=== PATIENT | male | born 1960 | race Caucasian/White ===

== ENCOUNTER 2022-11-17 21:58 | Inpatient (IN) | payer MEDICARE ==
[~2022-11-17] VITALS: Ht 188 cm; Wt 114.3 kg
[2022-11-17] MEDS ORDERED: MINE133E RC (22:18)
[2022-11-17] MEDS ORDERED: MULT-225 PO (22:18)
[2022-11-17] MEDS ORDERED: PANT40TA2 PO (22:18)
[2022-11-17] MEDS ORDERED: METF-440 PO (22:18)
[2022-11-17] MEDS ORDERED: AMLO5TAB4 PO (22:18)
[2022-11-17] MEDS ORDERED: BISA10SU61 RC (22:18)
[2022-11-17] MEDS ORDERED: DIVA500T2 PO (22:18)
[2022-11-17] MEDS ORDERED: TAMS-3 PO (22:18)
[2022-11-17] MEDS ORDERED: ACET325T53 PO (22:18)
[2022-11-17] MEDS ORDERED: MAGN400O6 PO (22:18)
[2022-11-17] MEDS ORDERED: QUET50TA PO (22:18)
[2022-11-17] MEDS ORDERED: QUET25TA PO (22:18)
[2022-11-17] MEDS ORDERED: PARO-154 PO (22:18)
[2022-11-17] MEDS ORDERED: CLON0.5T PO (22:18)
[2022-11-17] MEDS ORDERED: ASPI81TA31 PO (22:18)
[2022-11-17] MEDS ORDERED: LISI10TA29 PO (22:18)
[2022-11-17] MEDS ORDERED: LITH300T3 PO (22:18)
[2022-11-17 22:57] LABS: HEMATOCRIT 32.8 % (36.7-47.1); MEAN CORPUSCULAR HEMOGLOBIN 31.4 uug (23.8-33.4); MEAN CORPUSCULAR VOLUME 94.3 fL (73.0-96.2); PLATELET COUNT (AUTO) 234 K/uL (152-348)
[2022-11-17 23:09] LABS: CARBON DIOXIDE 26 mmol/L (21-32); CHLORIDE 102 mmol/L (98-107); GLUCOSE 144 mg/dL (74-106); POTASSIUM 4.1 mmol/L (3.5-5.1); UREA NITROGEN, BLOOD 25 mg/dL (7-18)
[2022-11-17 23:15] LABS: ALANINE AMINOTRANSFERASE 18 U/L (16-63); ALKALINE PHOSPHATASE 67 U/L (50-136); ASPARTATE AMINOTRANSFERASE 7 U/L (15-37); BILIRUBIN,DIRECT < 0.1 mg/dL (0.0-0.2); BILIRUBIN,TOTAL 0.2 mg/dL (0.2-1.0); TOTAL PROTEIN, SERUM 6.6 g/dL (6.4-8.2)
[2022-11-17 23:16] LABS: ETHANOL < 3 MG/DL (0-0)
--- NOTE | 2022-11-17 23:19 | NUR ---
Called Will hot car operator for psych consult.
[2022-11-17 23:23] LABS: *BILIRUBIN,URIN NEGATIVE (NEGATIVE); *BLOOD, URINE NEGATIVE (NEGATIVE); *CLARITY,URINE CLEAR (CLEAR); *COLOR,URINE YELLOW (YELLOW); *KETONES,URINE NEGATIVE (NEGATIVE); *UROBILINOGEN,URINE 0.2 E.U./dl (NORMAL); LEUKOCYTE ESTERASE ,URINE NEGATIVE (NEGATIVE); NITRITE, URINE NEGATIVE (NEGATIVE); UGLUCOSE NEGATIVE (NEGATIVE)
[2022-11-17 23:26] LABS: ACETAMINOPHEN < 2.0 ug/mL (10-30)
[2022-11-17] MEDS ORDERED: BISACODYL 10 MG SUPP.RECT RC PRN (23:45)
[2022-11-17] MEDS ORDERED: MAGNESIUM HYDROXIDE 30 ML LIQUID UDC PO PRN (23:45)
[2022-11-17] MEDS ORDERED: MINERAL OIL FLEET ENEMA 133 ML BOTTLE RC PRN (23:45)
[2022-11-17] MEDS ORDERED: ACETAMINOPHEN 325 MG TABLET-SA PATIENTS-PAIN ONLY PO PRN (23:45)
[2022-11-17 23:56] LABS: *AMPHETAMINE, URINE NEGATIVE (NEGATIVE); *CANNABINOID, URINE NEGATIVE (NEGATIVE); *COCCAINE, URINE NEGATIVE (NEGATIVE); *PHENCYCLIDINE SCREEN,URINE NEGATIVE (NEGATIVE)
--- NOTE | 2022-11-18 00:20 | NUR ---
Patient placed on hold by parts assembler Will.
--- NOTE | 2022-11-18 00:32 | NUR ---
Called pt. brother Jake Alegria to alert of pt admission. Left a voicemail.
--- NOTE | 2022-11-18 01:08 | NUR ---
Called [facility] and gave report to Nano MILLARD.
[2022-11-18] MEDS ORDERED: MAGNESIUM HYDROXIDE 30 ML LIQUID UDC PO PRN (02:00)
[2022-11-18] MEDS ORDERED: MAG HYDROX/AL HYDROX/SIMETH 30 ML LIQUID UDC PO PRN (02:00)
--- NOTE | 2022-11-18 02:00 | NUR ---
Transferred patient to MHU via wheelchair. VENICE Mcgill made aware of patient's arrival.
--- NOTE | 2022-11-18 02:45 | NUR ---
Admission Note: A 62 Yr Old patient was brought to the ER from [facility] to be Psychiatrically evaluated. Pt was placed on a 5150 hold for GD. Per hold,Pt Is confused, Disoriented, Nonsensical, aggressive toward staff and unable to care for self. Pt has a history of Dementia, Mood Disturbances and Anxiety, Schizophrenia and Bipolar Disorder. Upon face to face evaluation, Pt was confused, disorganized, disoriented, nonsensical and a poor historian. Pt is A/O X2 to name and situation. Pt was mumbling to him self with an occasional inappropriate comment.Head to toe assessment done and pt was oriented to the unit. A patients rights hand book and advisement provided. Reassurance provided, Safety measures put in place. No acute distress noted. Continue to monitor for safety, continue with treatment plan.
[2022-11-18] MEDS: LORAZEPAM 1 MG TABLET PO PRN ×2 (02:55→21:21)
[2022-11-18] MEDS: ACETAMINOPHEN 325 MG TABLET PO PRN ×3 (02:55→21:21)
[2022-11-18 02:57] VITALS: BP 105/52
[2022-11-18] MEDS: PANTOPRAZOLE SODIUM 40 MG TABLET.DR PO SCH (07:04)
[2022-11-18 07:41] VITALS: BP 128/64
[2022-11-18] MEDS: LISINOPRIL 10 MG TABLET PO SCH (08:42)
[2022-11-18] MEDS: METFORMIN HCL 500 MG TABLET PO SCH ×2 (08:42→17:02)
[2022-11-18] MEDS: ASPIRIN 81 MG TAB.CHEW PO SCH (08:43)
[2022-11-18] MEDS: AMLODIPINE 5 MG TABLET PO SCH (08:43)
[2022-11-18] MEDS: MULTIVITAMINS,THERAPEUTIC TABLET PO SCH (08:43)
[2022-11-18] MEDS: DIVALPROEX 500 MG TABLET.DR PO SCH ×2 (10:21→21:21)
[2022-11-18] MEDS: LITHIUM CARBONATE 300 MG CAPSULE PO SCH ×2 (10:21→16:23)
--- NOTE | 2022-11-18 11:00 | NUR ---
Gps/Choir Director- Nemariannay, confused , kept coming into the Nurses station , asking for his simple needs . Constantly needing to be redirected. Confused , disoriented .safety reviewed
[2022-11-18] MEDS: OLANZAPINE 2.5 MG TABLET PO SCH ×2 (14:11→16:23)
[2022-11-18 16:15] VITALS: BP 111/66
--- NOTE | 2022-11-18 16:47 | NUR ---
Gps/Hull Sorter- Patient requesting to sit on a marilyn-chair informed he does not need one , he is ambulatory , claimed his feet hurts, offered tylenol 650 mg po , instructed to elevate feet when in bed.Meds. compliant
[2022-11-18 19:44] VITALS: BP 119/59
[2022-11-18] MEDS: TAMSULOSIN HCL 0.4 MG CAP.SR.24H PO SCH (21:21)
[2022-11-18] MEDS: ZOLPIDEM 5 MG TABLET PO PRN (23:16)
--- NOTE | 2022-11-19 05:23 | NUR ---
Pt is AOx1, responds to name. Disoriented, confused, very forgetful, poor judgement, poor impulse control, intrusive, restless. Patient is compliant with medications, took 2100 hour meds, along with prn meds, but patient continues to be confused, disoriented, and hard to re-direct. Self ambulatory, yet needs assistance with ADL's. Continuously asks the same questions to staff. Also asks for irrelevant needs throughout shift. Repeated education, reassuring, and monitoring is needed for client compliancy and pt safety.
[2022-11-19] MEDS: LORAZEPAM 1 MG TABLET PO PRN ×4 (05:51→20:20)
[2022-11-19] MEDS: PANTOPRAZOLE SODIUM 40 MG TABLET.DR PO SCH (07:00)
[2022-11-19 07:45] VITALS: BP 150/69
[2022-11-19] MEDS: DIVALPROEX 500 MG TABLET.DR PO SCH ×2 (08:19→20:20)
[2022-11-19] MEDS: ASPIRIN 81 MG TAB.CHEW PO SCH (08:19)
[2022-11-19] MEDS: MULTIVITAMINS,THERAPEUTIC TABLET PO SCH (08:19)
[2022-11-19] MEDS: OLANZAPINE 2.5 MG TABLET PO SCH ×3 (08:19→16:38)
[2022-11-19] MEDS: METFORMIN HCL 500 MG TABLET PO SCH ×2 (08:19→18:04)
[2022-11-19] MEDS: LITHIUM CARBONATE 300 MG CAPSULE PO SCH ×2 (08:19→16:38)
[2022-11-19] MEDS: AMLODIPINE 5 MG TABLET PO SCH (08:21)
[2022-11-19] MEDS: LISINOPRIL 10 MG TABLET PO SCH (08:21)
[2022-11-19] MEDS: PAROXETINE HCL 10 MG TABLET PO SCH (08:23)
[2022-11-19 08:55] LABS: THYROID STIMULATING HORMONE 1.682 mIU/mL (0.358-3.740)
--- NOTE | 2022-11-19 13:34 | NUR ---
GPS: Nursing Notes: Destructive Behavior To Others: Patient is awake and responding to his name, impaired judgment, poor insight, episodes of walking half naked on the hallway, redirected and reoriented during shift, repetitive when answering questions, disorganized, poor impulse control, unable to formulate a viable plan for self care, believes that a taxi is coming to pick him up, continue to monitor for safety, continue with treatment plan.
[2022-11-19 15:22] VITALS: BP 101/57
[2022-11-19] MEDS: ACETAMINOPHEN 325 MG TABLET PO PRN (16:40)
[2022-11-19 19:47] VITALS: BP 146/68
[2022-11-19] MEDS: TAMSULOSIN HCL 0.4 MG CAP.SR.24H PO SCH (20:20)
[2022-11-20] MEDS: ZOLPIDEM 5 MG TABLET PO PRN (00:53)
[2022-11-20] MEDS: LORAZEPAM 1 MG TABLET PO PRN ×3 (04:22→20:43)
[2022-11-20] MEDS: ACETAMINOPHEN 325 MG TABLET PO PRN ×3 (04:22→16:59)
--- NOTE | 2022-11-20 06:06 | NUR ---
GPS: Pt.slept 4.30 last night. Remains confused,disoriented and disorganized. Easily irritable and argumentative when being re-directed. Poor insight and judgment. Frequently asks if he can go home. Re-assured prn. Med.compliant. Safe environment provided. Will continue to monitor.
[2022-11-20] MEDS: PANTOPRAZOLE SODIUM 40 MG TABLET.DR PO SCH (06:23)
[2022-11-20 08:09] VITALS: BP 133/50
[2022-11-20] MEDS: LITHIUM CARBONATE 300 MG CAPSULE PO SCH ×2 (08:30→16:59)
[2022-11-20] MEDS: DIVALPROEX 500 MG TABLET.DR PO SCH ×2 (08:30→20:24)
[2022-11-20] MEDS: LISINOPRIL 10 MG TABLET PO SCH (08:30)
[2022-11-20] MEDS: ASPIRIN 81 MG TAB.CHEW PO SCH (08:30)
[2022-11-20] MEDS: PAROXETINE HCL 10 MG TABLET PO SCH (08:30)
[2022-11-20] MEDS: METFORMIN HCL 500 MG TABLET PO SCH ×2 (08:30→17:01)
[2022-11-20] MEDS: OLANZAPINE 2.5 MG TABLET PO SCH ×2 (08:30→16:59)
[2022-11-20] MEDS: MULTIVITAMINS,THERAPEUTIC TABLET PO SCH (08:30)
[2022-11-20] MEDS: AMLODIPINE 5 MG TABLET PO SCH (08:31)
--- NOTE | 2022-11-20 09:13 | NUR ---
GPS: Nursing Notes: 5250 [facility] Request: Staff gave copy of 5250 to patient. Explained 5250 and informed patient that a certification review hearing will be held within four days and patient's right advocate will call him to provide assistance with the hearing and to answer his questions. The court has been notified of this certification via [facility] portal on this day.
--- NOTE | 2022-11-20 13:07 | NUR ---
GPS: Nursing Notes: Destructive Behavior To Others: Patient is awake and responding to his name, impaired judgment, overly demanding at times, needy, repetitive speech when answering questions, disorganized, poor impulse control, episodes of walking half naked on the hallway, redirected and reoriented during shift, forgetful, unable to formulate a viable plan for self care, needs prompting to participate in therapeutic groups, no aggressive behavior noted, continue to monitor for safety, continue with treatment plan.
--- NOTE | 2022-11-20 14:42 | NUR ---
PERRY Initial Discharge Note: Pt currently resides at [facility] ([phone]) located at [address] [place] [address]. PERRY spoke with pt's brother/probate conservator, Jake ([phone]) who stated pt will return to [facility]. Jake stated he is the only family contact for the pt. PERRY will continue to work with pt, Jake and to ensure a safe and proper discharge plan.
[2022-11-20 16:03] VITALS: BP 128/62
[2022-11-20 19:45] VITALS: BP 130/64
[2022-11-20] MEDS: OLANZAPINE 5 MG TABLET PO SCH (20:24)
[2022-11-20] MEDS: TAMSULOSIN HCL 0.4 MG CAP.SR.24H PO SCH (20:24)
[2022-11-21] MEDS: ZOLPIDEM 5 MG TABLET PO PRN (02:03)
[2022-11-21] MEDS: PANTOPRAZOLE SODIUM 40 MG TABLET.DR PO SCH (06:10)
[2022-11-21] MEDS: LORAZEPAM 1 MG TABLET PO PRN ×2 (06:10→18:44)
--- NOTE | 2022-11-21 06:31 | NUR ---
GPS: Pt. remains confused,forgetful and disorganized. Poor insight to present situation and has impaired judgment. Frequently at nurses station asking for things repeatedly. Intrusive and easily irritable when his demands are not granted. Takes meds. as ordered when offered. Slept 5 hrs.last night. Safe environment provided.. Will continue to re-direct and re-assure prn.
[2022-11-21 07:50] VITALS: BP 142/71
[2022-11-21] MEDS: METFORMIN HCL 500 MG TABLET PO SCH ×2 (08:12→17:25)
[2022-11-21] MEDS: ASPIRIN 81 MG TAB.CHEW PO SCH (08:12)
[2022-11-21] MEDS: OLANZAPINE 2.5 MG TABLET PO SCH ×2 (08:12→17:25)
[2022-11-21] MEDS: DIVALPROEX 500 MG TABLET.DR PO SCH ×2 (08:12→20:11)
[2022-11-21] MEDS: LITHIUM CARBONATE 300 MG CAPSULE PO SCH ×2 (08:13→17:25)
[2022-11-21] MEDS: AMLODIPINE 5 MG TABLET PO SCH (08:13)
[2022-11-21] MEDS: MULTIVITAMINS,THERAPEUTIC TABLET PO SCH (08:13)
[2022-11-21] MEDS: LISINOPRIL 10 MG TABLET PO SCH (08:13)
[2022-11-21 15:10] VITALS: BP 119/74
--- NOTE | 2022-11-21 18:31 | NUR ---
Pt is anxious, confused,labile, forgetful and restless. Repeatedly asking for food and where is his room. Pt was reassured and redirected. Pt has insight to present situation and can not care for self. Pt is compliant with medication and with nursing care. Pt is Nonsensical, argumentative constantly coming to nursing station asking to let him go. Pt Yells "let me go , let me go " "I don't care of the whole world " I want to go to [facility] " You want to kill me " Kill me Kill Me" . Pt was redirected and reassured. Continue to monitor for behavioral escalation and for safety.
[2022-11-21] MEDS: ACETAMINOPHEN 325 MG TABLET PO PRN (18:44)
[2022-11-21 19:58] VITALS: BP 132/70
[2022-11-21] MEDS: TAMSULOSIN HCL 0.4 MG CAP.SR.24H PO SCH (20:10)
[2022-11-21] MEDS: OLANZAPINE 5 MG TABLET PO SCH (20:11)
[2022-11-22] MEDS: PANTOPRAZOLE SODIUM 40 MG TABLET.DR PO SCH (06:12)
[2022-11-22 07:30] VITALS: BP 126/69
[2022-11-22] MEDS: LISINOPRIL 10 MG TABLET PO SCH (08:59)
[2022-11-22] MEDS: LITHIUM CARBONATE 300 MG CAPSULE PO SCH ×3 (08:59→17:28)
[2022-11-22] MEDS: DIVALPROEX 500 MG TABLET.DR PO SCH ×3 (08:59→17:28)
[2022-11-22] MEDS: AMLODIPINE 5 MG TABLET PO SCH (08:59)
[2022-11-22] MEDS: ASPIRIN 81 MG TAB.CHEW PO SCH (08:59)
[2022-11-22] MEDS: MULTIVITAMINS,THERAPEUTIC TABLET PO SCH (08:59)
[2022-11-22] MEDS: METFORMIN HCL 500 MG TABLET PO SCH ×2 (09:00→17:28)
[2022-11-22] MEDS: OLANZAPINE 2.5 MG TABLET PO SCH ×2 (09:00→17:28)
[2022-11-22 15:52] VITALS: BP 117/50
[2022-11-22] MEDS: PROTEIN SUPPLEMENT (PROSTAT) 30 ML LIQUID PO SCH (17:29)
--- NOTE | 2022-11-22 18:33 | NUR ---
Pt is confused and disoriented . Pt is argumentative when he does not get his way.Pt is constantly asking "can you let me out" I want to go home, I wan to go home "I want food ,I want food" " Give me food, Give me food". Reassured, redirected. Safety measures on place . Continue to monitor for safety.
[2022-11-22 20:10] VITALS: BP 120/65
[2022-11-22] MEDS: OLANZAPINE 5 MG TABLET PO SCH (21:04)
[2022-11-22] MEDS: TAMSULOSIN HCL 0.4 MG CAP.SR.24H PO SCH (21:05)
[2022-11-22] MEDS ORDERED: OLANZAPINE 10 MG VIAL IM STA (22:44)
--- NOTE | 2022-11-22 23:37 | NUR ---
Patient continued to wander in and out of his bedroom, wandering the halls aimlessly. Even with repeated directions pt remains confused, disoriented, and non-compliant. Pt became labile continuously yelling "I want to go home!" Numerous verbal attempts at calming down the pt were non-effective and pt continued to escalate with non-compliant behavior. This nurse notified Dr. Dee regarding pt's behavior. New order given: Zyprexa 10mg IM Stat. Security notified, x3 maximum assist, IM given in (L) deltoid. Pt tolerated procedure well and is remaining calm sitting in his bedroom chair. Safety practices in place. Will continue to monitor.
[2022-11-23] MEDS: PANTOPRAZOLE SODIUM 40 MG TABLET.DR PO SCH (06:36)
[2022-11-23 07:36] VITALS: BP 108/57
[2022-11-23] MEDS: MULTIVITAMINS,THERAPEUTIC TABLET PO SCH (08:52)
[2022-11-23] MEDS: LITHIUM CARBONATE 300 MG CAPSULE PO SCH ×3 (08:52→16:32)
[2022-11-23] MEDS: DIVALPROEX 500 MG TABLET.DR PO SCH ×3 (08:53→16:33)
[2022-11-23] MEDS: AMLODIPINE 5 MG TABLET PO SCH (08:53)
[2022-11-23] MEDS: ASPIRIN 81 MG TAB.CHEW PO SCH (08:53)
[2022-11-23] MEDS: METFORMIN HCL 500 MG TABLET PO SCH ×2 (08:53→17:30)
[2022-11-23] MEDS: LISINOPRIL 10 MG TABLET PO SCH (08:55)
[2022-11-23] MEDS: OLANZAPINE 2.5 MG TABLET PO SCH ×2 (08:57→16:32)
[2022-11-23] MEDS: PROTEIN SUPPLEMENT (PROSTAT) 30 ML LIQUID PO SCH ×2 (08:58→16:35)
--- NOTE | 2022-11-23 10:51 | NUR ---
Patient had court hearing today, and supervisory historian Carmen Claros gave 14 Day hold probable cause for GD only.
[2022-11-23] MEDS: LORAZEPAM 1 MG TABLET PO PRN (11:35)
--- NOTE | 2022-11-23 11:35 | NUR ---
Gps/Quality Coordinator- Patient was loud, extremely agitated, yelling at the staff , speech confused and incoherent , labile mood ,noted upset that a patient is about to be discharge who's in a gurney . Offered ativan 1 mg po , patient refused , patient was able to calmed down after spending time with hiim. Continue to monitor behavior, Ativan 1 mg po was not administer , tried to waste with Aleshia CHAMBERS .
--- NOTE | 2022-11-23 14:00 | NUR ---
Gps/Prepress Manager- Patient can be re directed in a calm mood, and calmer manner.able to follw simple directions , his speech gets confused and incoherent , tends to perseverates on his request .
--- NOTE | 2022-11-23 14:32 | NUR ---
Gps/Casino Assistant Manager- Bouts of yelling spells, patient requesting staff to recite verses from the Bible, Staff tried to recite Yassine 3:16 , pt. wants to keep going , demanding staff to recite 2 more verses, when staff unable pt. was loud , yelling, tried to redirect patient ,offered ativan 1 mg this a, claime will take but when re offered pt. refused, ativan was wasted with weigher and charger Aleshia , , [facility] Pharmacy was called to help staff
--- NOTE | 2022-11-23 15:52 | NUR ---
Gps/Grey Percher- Napping in bed, monitored closely for safety and needs , no sign of any distress
[2022-11-23 16:00] VITALS: BP 144/72
[2022-11-23 19:57] VITALS: BP 142/65
[2022-11-23] MEDS: OLANZAPINE 5 MG TABLET PO SCH (20:24)
[2022-11-23] MEDS: TAMSULOSIN HCL 0.4 MG CAP.SR.24H PO SCH (20:24)
--- NOTE | 2022-11-24 05:35 | NUR ---
Pt was restless and anxious pacing in his room and going to the restroom multiple times. offer pt sleeping PRN or a PRN for anxiety but refused. Pt is compliant with schedule medications.Pt stayed in room the whole night but only slept for 3.45 hours. Safety measures put in place. Continue to monitor for safety, Continue with treatment plan.
[2022-11-24] MEDS: ACETAMINOPHEN 325 MG TABLET PO PRN ×2 (06:16→21:14)
[2022-11-24] MEDS: PANTOPRAZOLE SODIUM 40 MG TABLET.DR PO SCH (06:16)
[2022-11-24 07:38] VITALS: BP 136/68
[2022-11-24] MEDS: ASPIRIN 81 MG TAB.CHEW PO SCH (08:38)
[2022-11-24] MEDS: METFORMIN HCL 500 MG TABLET PO SCH ×2 (08:38→17:01)
[2022-11-24] MEDS: MULTIVITAMINS,THERAPEUTIC TABLET PO SCH (08:38)
[2022-11-24] MEDS: DIVALPROEX 500 MG TABLET.DR PO SCH ×3 (08:38→16:15)
[2022-11-24] MEDS: LITHIUM CARBONATE 300 MG CAPSULE PO SCH ×3 (08:38→16:16)
[2022-11-24] MEDS: LISINOPRIL 10 MG TABLET PO SCH (08:39)
[2022-11-24] MEDS: AMLODIPINE 5 MG TABLET PO SCH (08:39)
[2022-11-24] MEDS: OLANZAPINE 2.5 MG TABLET PO SCH ×2 (08:39→16:16)
[2022-11-24] MEDS: PROTEIN SUPPLEMENT (PROSTAT) 30 ML LIQUID PO SCH ×2 (08:40→16:16)
[2022-11-24] MEDS ORDERED: LORAZEPAM 2 MG/1 ML VIAL IM ONE (09:45)
[2022-11-24] MEDS ORDERED: OLANZAPINE 10 MG VIAL IM ONE (09:45)
--- NOTE | 2022-11-24 09:45 | NUR ---
GPS: Nursing Notes: Severe Agitation: Patient is awake and shouting repetitive toward staff, restless behavior, posturing toward staff, invading staff personal space when shouting, loud and angry affect, believes that the staff "Nacho" is his girlfriend, shouting to staff "CALL NACHO, SHE IS MY GIRLFRIEND... SHE LOVES ME.. SHE WILL COME.." setting limits, but unable to be redirected, poor impulse control, poor anger management, shouting and threatening staff, Ji Pastor NP ordered: Zyprexa 2.5mg IM STAT for severe agitation, continue to monitor for safety, continue with treatment plan.
--- NOTE | 2022-11-24 09:52 | NUR ---
GPS: Nursing Notes: Chemical Restraint: Patient is awake and shouting repetitive to staff, redirected, but unable to be redirected, restless behavior, poor anger management, poor impulse control, threatening and posturing toward staff, invading staff personal space, running after the security and shouting, shouting "CALL NACHO.. SHE IS MY GIRLFRIEND..I AM A BAPTIST..", Zyprexa 2.5mg IM STAT given at this time for severe agitation, R=18, continue to monitor for safety, continue with treatment plan.
--- NOTE | 2022-11-24 10:22 | NUR ---
GPS: Nursing Notes: Reassessment of Chemical Restraint: Patient is awake and responding to his name, participating in therapeutic groups, following staff directions, IM medication was effective. Patient became calm, R=18, continue to monitor for safety, continue with treatment plan.
[2022-11-24] MEDS: LORAZEPAM 1 MG TABLET PO PRN ×2 (14:55→19:53)
[2022-11-24 16:37] VITALS: BP 119/95
[2022-11-24 20:00] VITALS: BP 140/83
[2022-11-24] MEDS: OLANZAPINE 5 MG TABLET PO SCH (20:09)
[2022-11-24] MEDS: TAMSULOSIN HCL 0.4 MG CAP.SR.24H PO SCH (20:09)
--- NOTE | 2022-11-25 03:36 | NUR ---
Received patient at the nurses station. Requesting pencils. Hyperverbal , hyperreligious and talks over people, poor listening skills and shows childlike behavior. The patient insisted on keeping the light on in his room, despite his room mate trying to sleep. This patient is medication compliant at this time. Safety Stratiges are in place. Continuing to monitor for behavior escalation, aggressiveness and frequent demands. Redirection and boundaries are in place as needed.
[2022-11-25] MEDS: LORAZEPAM 1 MG TABLET PO PRN ×2 (06:06→15:09)
[2022-11-25] MEDS: PANTOPRAZOLE SODIUM 40 MG TABLET.DR PO SCH (06:06)
[2022-11-25 07:52] VITALS: BP 136/70
[2022-11-25] MEDS: AMLODIPINE 5 MG TABLET PO SCH (08:09)
[2022-11-25] MEDS: OLANZAPINE 2.5 MG TABLET PO SCH ×2 (08:09→16:05)
[2022-11-25] MEDS: DIVALPROEX 500 MG TABLET.DR PO SCH ×3 (08:09→16:05)
[2022-11-25] MEDS: LITHIUM CARBONATE 300 MG CAPSULE PO SCH ×3 (08:09→16:05)
[2022-11-25] MEDS: MULTIVITAMINS,THERAPEUTIC TABLET PO SCH (08:09)
[2022-11-25] MEDS: METFORMIN HCL 500 MG TABLET PO SCH ×2 (08:09→17:30)
[2022-11-25] MEDS: ASPIRIN 81 MG TAB.CHEW PO SCH (08:09)
[2022-11-25] MEDS: LISINOPRIL 10 MG TABLET PO SCH (08:10)
[2022-11-25] MEDS: PROTEIN SUPPLEMENT (PROSTAT) 30 ML LIQUID PO SCH ×2 (08:10→16:06)
--- NOTE | 2022-11-25 10:45 | NUR ---
GPS: Nursing Notes: Destructive Behavior To Others: Patient is awake and responding to his name, impaired judgment, disorganized, unkempt appearance, childlike behavior, repetitive speech, needy, overly demanding at times, redirected and reoriented during shift, forgetful, poor impulse control, hyper-scientologist at times, needs prompting to participate in therapeutic groups, unable to formulate a viable plan for self care, stated "Vidhi is my girlfriend and she loves me..", setting limits, but poor impulse control, continue to monitor for safety, continue with treatment plan.
[2022-11-25] MEDS: ACETAMINOPHEN 325 MG TABLET PO PRN (16:06)
[2022-11-25 16:48] VITALS: BP 129/63
[2022-11-25 19:44] VITALS: BP 132/64
[2022-11-25] MEDS: OLANZAPINE 5 MG TABLET PO SCH (20:31)
[2022-11-25] MEDS: TAMSULOSIN HCL 0.4 MG CAP.SR.24H PO SCH (20:31)
[2022-11-25] MEDS: ZOLPIDEM 5 MG TABLET PO PRN (22:00)
--- NOTE | 2022-11-26 05:18 | NUR ---
The patient has been up and down during the night. Continuously asking for food, attention seeking, speaking over this verse writer and intrusive with other patients and staff. The patient is delusional and has verbalized " Do you know Vidhi? I am going to her. You look like her. I love you ". This verse writer saw the patient masturbating a short time prior to that, sitting on the edge of his bed. The patient is difficult to redirect or distract and is firm and demanding with his requests. Safety Stratiges and unit rules are in place. Physical and verbal boundaries need to be clear and consistent when dealing with this patient.
[2022-11-26] MEDS: LORAZEPAM 1 MG TABLET PO PRN ×2 (05:56→12:48)
[2022-11-26] MEDS: PANTOPRAZOLE SODIUM 40 MG TABLET.DR PO SCH (05:56)
[2022-11-26 07:49] VITALS: BP 131/67
[2022-11-26] MEDS: MULTIVITAMINS,THERAPEUTIC TABLET PO SCH (08:06)
[2022-11-26] MEDS: OLANZAPINE 2.5 MG TABLET PO SCH ×2 (08:06→16:08)
[2022-11-26] MEDS: DIVALPROEX 500 MG TABLET.DR PO SCH ×3 (08:06→16:08)
[2022-11-26] MEDS: METFORMIN HCL 500 MG TABLET PO SCH ×2 (08:06→17:04)
[2022-11-26] MEDS: ASPIRIN 81 MG TAB.CHEW PO SCH (08:06)
[2022-11-26] MEDS: LITHIUM CARBONATE 300 MG CAPSULE PO SCH ×3 (08:06→16:08)
[2022-11-26] MEDS: AMLODIPINE 5 MG TABLET PO SCH (08:07)
[2022-11-26] MEDS: PROTEIN SUPPLEMENT (PROSTAT) 30 ML LIQUID PO SCH ×2 (08:07→16:08)
[2022-11-26] MEDS: LISINOPRIL 10 MG TABLET PO SCH (08:07)
[2022-11-26] MEDS: ACETAMINOPHEN 325 MG TABLET PO PRN ×2 (08:17→15:32)
--- NOTE | 2022-11-26 11:11 | NUR ---
GPS: Nursing Notes: Destructive Behavior To Others: Patient is awake and responding to his name, constantly coming to the nursing station, childlike behavior, stated "I am leaving today... I am going home.. Common sense..", repetitive speech, redirected and reoriented to reality during shift, setting, but unable to follow redirections, needs prompting to participate in therapeutic groups, unable to formulate a viable plan for self care, unkempt appearance, poor impulse control, gets easily irritable when setting limits, continue to monitor for safety, continue with treatment plan.
[2022-11-26 16:06] VITALS: BP 112/73
[2022-11-26 19:53] VITALS: BP 118/59
[2022-11-26] MEDS ORDERED: OLANZAPINE 10 MG VIAL IM STA (20:02)
[2022-11-26] MEDS: TAMSULOSIN HCL 0.4 MG CAP.SR.24H PO SCH (20:33)
[2022-11-26] MEDS: OLANZAPINE 5 MG TABLET PO SCH (21:00)
--- NOTE | 2022-11-26 23:35 | NUR ---
Patient continuously stood at nurses station door/walkway escalating and yelling out statements that were either nonsensical or demanding things that were irrelevant to his needs. He would state "I'm a Taoist. I need to be released!" "Are you a Taoist?" "Kill me, kill me!" Patient was non-redirectable and would not listen to staff trying to calm/help him. This nurse notified his psychiatrist Dr. Dee for orders. New order given: Zyprexa 10mg, IM, STAT. Injection was made into pt's (R) deltoid with the help of security x2 assist. Pt tolerated the procedure well and has remained calm in his room since receiving the injection at 2018 hours. Safety strategies implemented. Will continue to follow.
[2022-11-27] MEDS: PANTOPRAZOLE SODIUM 40 MG TABLET.DR PO SCH (06:45)
[2022-11-27 07:30] VITALS: BP 140/68
[2022-11-27] MEDS: METFORMIN HCL 500 MG TABLET PO SCH ×2 (08:11→17:04)
[2022-11-27] MEDS: ACETAMINOPHEN 325 MG TABLET PO PRN ×2 (08:11→16:03)
[2022-11-27] MEDS: ASPIRIN 81 MG TAB.CHEW PO SCH (08:11)
[2022-11-27] MEDS: DIVALPROEX 500 MG TABLET.DR PO SCH ×3 (08:11→16:29)
[2022-11-27] MEDS: MULTIVITAMINS,THERAPEUTIC TABLET PO SCH (08:11)
[2022-11-27] MEDS: LITHIUM CARBONATE 300 MG CAPSULE PO SCH ×3 (08:12→16:29)
[2022-11-27] MEDS: OLANZAPINE 2.5 MG TABLET PO SCH ×2 (08:12→16:29)
[2022-11-27] MEDS: LISINOPRIL 10 MG TABLET PO SCH (08:12)
[2022-11-27] MEDS: AMLODIPINE 5 MG TABLET PO SCH (08:12)
[2022-11-27] MEDS: PROTEIN SUPPLEMENT (PROSTAT) 30 ML LIQUID PO SCH ×2 (08:16→16:29)
--- NOTE | 2022-11-27 10:27 | NUR ---
GPS: Nursing Notes: Destructive Behavior To Others: Patient is awake and responding to his name, constantly standing by the nursing station with childlike behavior, poor impulse control, stating "I am a Judaism... I am leaving today.. Common sense.." Impaired judgment, repetitive speech, redirected and reoriented during shift, setting limits, but unable to follow directions at times, loud and pressured speech at times, but compliant with his medications, poor grooming, unable to formulate a viable plan for self care, continue to monitor for safety, continue with treatment plan.
[2022-11-27] MEDS: LORAZEPAM 1 MG TABLET PO PRN (12:14)
[2022-11-27 15:27] VITALS: BP 152/70
[2022-11-27 19:58] VITALS: BP 135/69
[2022-11-27] MEDS: OLANZAPINE 5 MG TABLET PO SCH (20:30)
[2022-11-27] MEDS: TAMSULOSIN HCL 0.4 MG CAP.SR.24H PO SCH (20:30)
[2022-11-28] MEDS: PANTOPRAZOLE SODIUM 40 MG TABLET.DR PO SCH (06:08)
[2022-11-28 07:53] VITALS: BP 150/65
[2022-11-28] MEDS: METFORMIN HCL 500 MG TABLET PO SCH ×2 (08:29→17:13)
[2022-11-28] MEDS: MULTIVITAMINS,THERAPEUTIC TABLET PO SCH (08:29)
[2022-11-28] MEDS: LITHIUM CARBONATE 300 MG CAPSULE PO SCH ×3 (08:29→17:12)
[2022-11-28] MEDS: DIVALPROEX 500 MG TABLET.DR PO SCH ×3 (08:29→17:12)
[2022-11-28] MEDS: ASPIRIN 81 MG TAB.CHEW PO SCH (08:31)
[2022-11-28] MEDS: OLANZAPINE 2.5 MG TABLET PO SCH ×2 (08:31→17:12)
[2022-11-28] MEDS: AMLODIPINE 5 MG TABLET PO SCH (08:33)
[2022-11-28] MEDS: LISINOPRIL 10 MG TABLET PO SCH (08:33)
[2022-11-28] MEDS: PROTEIN SUPPLEMENT (PROSTAT) 30 ML LIQUID PO SCH ×2 (08:34→17:16)
[2022-11-28 16:07] VITALS: BP 151/80
--- NOTE | 2022-11-28 18:06 | NUR ---
Patient is anxious, restless . Pt constantly coming to the nursing station with childlike behavior, poor impulse control, stating "I am leaving today". " you do not believe in God " " please ,please let me leave " Repetitive speech, pt was redirected and reoriented, setting limits, but unable to follow directions at times, loud and pressured speech at times, Pt is compliant with his medications, unkept appearance, unable to formulate a viable plan for self care, continue to monitor for safety, continue with treatment plan.
[2022-11-28 19:49] VITALS: BP 146/76
[2022-11-28] MEDS: TAMSULOSIN HCL 0.4 MG CAP.SR.24H PO SCH (20:13)
[2022-11-28] MEDS: OLANZAPINE 5 MG TABLET PO SCH (20:14)
--- NOTE | 2022-11-29 05:24 | NUR ---
GPS NOTES: Received patient in his room sleeping, responsive to his name, A&0x2, patient to be d/c in the Am. Covid test done. Patient is somewhat better, he is less anxious and more re-directable. He is sleeping on and off, with frequent trips to restroom. No distress noted. He remains med compliant. All safety measures in placed.
[2022-11-29] MEDS: PANTOPRAZOLE SODIUM 40 MG TABLET.DR PO SCH (06:17)
[2022-11-29 08:17] VITALS: BP 149/89
[2022-11-29] MEDS: ASPIRIN 81 MG TAB.CHEW PO SCH (08:36)
[2022-11-29] MEDS: DIVALPROEX 500 MG TABLET.DR PO SCH ×2 (08:37→12:40)
[2022-11-29] MEDS: LISINOPRIL 10 MG TABLET PO SCH (08:37)
[2022-11-29] MEDS: METFORMIN HCL 500 MG TABLET PO SCH (08:37)
[2022-11-29] MEDS: MULTIVITAMINS,THERAPEUTIC TABLET PO SCH (08:38)
[2022-11-29] MEDS: OLANZAPINE 2.5 MG TABLET PO SCH (08:38)
[2022-11-29 08:39] VITALS: BP 149/87
[2022-11-29] MEDS: AMLODIPINE 5 MG TABLET PO SCH (08:39)
[2022-11-29] MEDS: LITHIUM CARBONATE 300 MG CAPSULE PO SCH ×2 (08:39→12:40)
[2022-11-29] MEDS: PROTEIN SUPPLEMENT (PROSTAT) 30 ML LIQUID PO SCH (08:41)
--- NOTE | 2022-11-29 12:57 | NUR ---
Gps/Resource Director- Called [facility], try to give report , but [facility] @ SNF waiting for some more papers to be faxed to their facility from [facility], will call back in few minutes to give report as requested
--- NOTE | 2022-11-29 13:30 | NUR ---
Gps/Clinical Molecular Geneticist-Called [facility] again, report was given to Nurse Gentile.
--- NOTE | 2022-11-29 13:50 | NUR ---
Gps/Bruise Trimmer- Discharged to [facility] via ambulance, all belongings was given back to patient . Discharged in good spirit with no new complaints noted.
== END 2022-11-29 14:00 | DRG 885 ==
LOC: ER 21:58 → GPS 11-18 01:45
PROVIDERS: ADMIT Psychiatry & Neurology Psychiatry; ATTEND Nurse Practitioner Family
DX: F31.64 Bipolar disorder, current episode mixed, severe, with psychotic features (principal); E44.1 Mild protein-calorie malnutrition; F03.90 Unspecified dementia, unspecified severity, without behavioral disturbance, psychotic disturbance, mood disturbance, and anxiety; Z68.32 Body mass index [BMI] 32.0-32.9, adult; D64.9 Anemia, unspecified; E11.9 Type 2 diabetes mellitus without complications; Z79.4 Long term (current) use of insulin; E78.5 Hyperlipidemia, unspecified; Z79.899 Other long term (current) drug therapy; G40.909 Epilepsy, unspecified, not intractable, without status epilepticus; M19.90 Unspecified osteoarthritis, unspecified site; R79.89 Other specified abnormal findings of blood chemistry; I10 Essential (primary) hypertension; Z79.82 Long term (current) use of aspirin; Z87.891 Personal history of nicotine dependence; E88.09 Other disorders of plasma-protein metabolism, not elsewhere classified
CPT/HCPCS: 36415; 70030-TC; 80164; 82747; 83550; 84443; 85014; 85025; A4663; G0480; J2060; J2358